=== PATIENT | male | born 1965 | race Caucasian/White ===

== ENCOUNTER 2017-10-16 16:27 | Emergency (ER) | payer MEDICAID ==
[~2017-10-16] VITALS: Ht 165.1 cm; Wt 73.9 kg
[~2017-10-16 16:27] MED LIST: CLEOCIN HCL150 MG PO; HYDROCHLOROTHIA25 M2 PO
[2017-10-16] MEDS ORDERED: LIPITOR10 MG PO (16:35)
[2017-10-16] MEDS ORDERED: NORCO 10-325 T1 EACH PO (16:36)
[2017-10-16] MEDS ORDERED: ZANTAC 150MG T150 MG PO (16:39)
[2017-10-16] MEDS ORDERED: LEVAQUIN 750 M750 MG PO (17:33)
[2017-10-16] MEDS ORDERED: ALBUTEROL2.5 MG/0.1 INH (17:33)
[2017-10-16] MEDS ORDERED: PREDNISONE50 MG PO (17:33)
[2017-10-16 17:44] VITALS: BP 136/92
--- NOTE | 2017-10-18 10:22 | EKG ---
[place] [address] ELECTROCARDIOGRAM REPORT Name: LIACLAIRE Ajay Room: [facility]#: [id number] Admission: 10/16/17 Attend Phys: Discharge: 10/16/17 Date of : 61 Report #: [id number] THIS REPORT FOR: //name// [facility] ED Test Date: 2017-10-16 Test Time: 17:07:22 Pat Name: CLAIRE FITZGERALD Department: Room: Gender: [employer]: Christopher LOUISE : 1965 Requested By: Orestes Leyva Order Number: [id number] Reading MD: Atif Salinas Measurements Intervals [place] Rate: 95 P: IA: QRS: 74 QRSD: 94 T: 29 QT: 332 QTc: 418 Interpretive Statements nsr Probable anteroseptal infarct, old No previous ECG available for comparison Electronically Signed On 10-18-2017 10:21:53 CDT by Atif Salinas [email or web address] <ELECTRONICALLY SIGNED> By: Atif Salinas MD, FACC 10/18/17 1021 1707 1707 Atif Salinas MD, FACC /EPI
== END 2017-10-16 17:44 | disposition home or self-care (01) ==
LOC: M.ERS 16:27
DX: J18.9 Pneumonia, unspecified organism (principal); Z90.49 Acquired absence of other specified parts of digestive tract

== ENCOUNTER 2018-05-07 11:05 | Emergency (ER) | payer MEDICAID ==
[~2018-05-07] VITALS: Ht 167.6 cm; Wt 59.0 kg
[~2018-05-07 11:05] MED LIST changes: +ALBUTEROL2.5 MG/0.1 INH; +LEVAQUIN 750 M750 MG PO; +LIPITOR10 MG PO; +NORCO 10-325 T1 EACH PO; +PREDNISONE50 MG PO; +ZANTAC 150MG T150 MG PO
[2018-05-07] MEDS ORDERED: LEXAPRO 10 MG T10 M2 PO (11:22)
[2018-05-07 11:42] LABS: INFLUENZA A ANTIGEN None Detected (None Detect); INFLUENZA B ANTIGEN None Detected (None Detect)
[2018-05-07] MEDS ORDERED: ORAPRED15 MG/5 ML PO (12:28)
[2018-05-07] MEDS ORDERED: AZITHROMYC200 MG/52 PO (12:28)
[2018-05-07 12:37] VITALS: BP 135/89
== END 2018-05-07 12:38 | disposition home or self-care (01) ==
LOC: M.ERS 11:05
PROVIDERS: Nurse Practitioner Family
DX: J20.9 Acute bronchitis, unspecified (principal); Z90.49 Acquired absence of other specified parts of digestive tract; Z85.810 Personal history of malignant neoplasm of tongue

== ENCOUNTER 2019-10-09 13:10 | Emergency (ER) | payer MEDICARE, MEDICAID ==
[~2019-10-09] VITALS: Ht 165.1 cm; Wt 59.0 kg
[~2019-10-09 13:10] MED LIST changes: +AZITHROMYC200 MG/52 PO; +LEXAPRO 10 MG T10 M2 PO; +ORAPRED15 MG/5 ML PO
[2019-10-09] MEDS ORDERED: XANAX 0.5 MG0.5 M1 PO (13:24)
[2019-10-09] MEDS ORDERED: AMITRIPTYLINE H25 M3 PO (13:25)
[2019-10-09] MEDS ORDERED: SYNTHROID25 MC1 PO (13:25)
[2019-10-09] MEDS ORDERED: AMOXICILLIN 50500 MG PO (13:25)
[2019-10-09 14:19] LABS: ABSOLUTE BASOPHILS 0.1 thou/uL (0.0-0.2); ABSOLUTE EOSINOPHILS 0.5 thou/uL (0.0-0.7); ABSOLUTE LYMPHOCYTES 1.2 thou/uL (0.8-5.3); ABSOLUTE MONOCYTES 0.9 thou/uL (0.0-1.2); ABSOLUTE NEUTROPHILS 6.7 thou/uL (1.6-8.1); BASOPHILS 0.6 %; HEMATOCRIT 37.1 % (42.0-52.0); HEMOGLOBIN 12.8 gm/dL (14.0-18.0); LYMPHOCYTES 12.8 %; MCH 31.8 pg (26.0-34.0); MCHC 34.5 g/dL (28.0-37.0); MCV 92.2 fL (80.0-100.0); MONOCYTES 9.6 %; MPV 9.2 fl. (7.2-11.1); NUCLEATED RBCS 0 /100WBC; PLATELET COUNT* 277 thou/uL (150-400); RBC 4.03 mil/uL (4.50-6.00); RDW-CV 14.8 % (10.5-14.5); WBC 9.3 thou/uL (4.0-11.0)
[2019-10-09 14:25] LABS: CALCIUM 9.1 mg/dL (8.5-10.1); CREATININE 0.9 mg/dL (0.6-1.3); POTASSIUM 4.2 mmol/L (3.5-5.1)
[2019-10-09] MEDS ORDERED: HYDROCODON-ACE1 EAC7 PO (15:43)
[2019-10-09 16:08] VITALS: BP 127/63
== END 2019-10-09 16:09 | disposition home or self-care (01) ==
LOC: M.ERS 13:10
PROVIDERS: Nurse Practitioner Psychiatric/Mental Health
DX: S80.01XA Contusion of right knee, initial encounter (principal); Z90.49 Acquired absence of other specified parts of digestive tract; Z85.810 Personal history of malignant neoplasm of tongue; X58.XXXA Exposure to other specified factors, initial encounter; Y93.89 Activity, other specified; Y92.89 Other specified places as the place of occurrence of the external cause; Y99.8 Other external cause status